=== PATIENT | male | born 1995 | race Two or more races ===

== ENCOUNTER 2024-06-22 13:27 | Emergency (ER) | payer SELFPAY ==
[2024-06-22] MEDS: Proparacaine 0.5% Ophth Soln 15 ML Bottle EYELF ONE (13:53)
[2024-06-22] MEDS: Fluorescein 1 MG Ophth Strip EYELF ONE (13:54)
[2024-06-22] MEDS: Gentamicin 0.3% Ophth Soln 5 ML Bottle ONE (14:20)
== END 2024-06-22 14:30 | disposition home or self-care (01) ==
LOC: DL.ED 13:27
DX: S05.02XA Injury of conjunctiva and corneal abrasion without foreign body, left eye, initial encounter (principal); X58.XXXA Exposure to other specified factors, initial encounter
CPT/HCPCS: 99283; A9270; J3490